=== PATIENT | male | born 2000 | race Caucasian/White ===

== ENCOUNTER 2021-08-25 19:43 | Emergency (ER) | payer SELFPAY ==
[~2021-08-25] VITALS: Ht 165.1 cm; Wt 93.1 kg
[2021-08-25] MEDS ORDERED: ANASPAZ0.125 MG PO (21:57)
--- OUTSIDE RECORDS SUMMARY | 2021-08-25 22:34 | XMS ---
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 Robbi has no Care Guidelines for this patient. Jenny VISIT COUNT (12 MO.) 5 [facility] 1 [facility] TOTAL 6 NOTE: Visits indicate total known visits. ED/UCC VISIT TRACKING (12 MO.) 08/25/2021 19:44 [facility] [place] TYPE: Emergency COMPLAINT: - BLLOD IN STOOL 08/12/2021 11:34 [facility]DJ[facility] [place] TYPE: Emergency DIAGNOSES: 0. Unspecified visual loss 0. Headache, unspecified 0. LOSS OF VISION 1. Migraine, unspecified, not intractable, without status migrainosus 2. Nicotine dependence, cigarettes, uncomplicated 05/20/2021 10:42 [facility] [place] TYPE: Emergency DIAGNOSES: 0. FACIAL WEAKNESS 0. Paresthesia of skin 0. Other visual disturbances 0. Headache, unspecified 1. Headache, unspecified 2. Nicotine dependence, cigarettes, uncomplicated 2. Paresthesia of skin 2. Tachycardia, unspecified 2. Allergy status to other drugs, medicaments and biological substances 2. Other visual disturbances 05/14/2021 18:29 [employer] [facility] [place] TYPE: Emergency DIAGNOSES: 0. NECK LUMP 0. Localized swelling, mass and lump, neck 1. Other muscle spasm 2. Other tic disorders 2. Nicotine dependence, cigarettes, uncomplicated 03/05/2021 19[facility] DIAGNOSES: 0. BACK PAIN 0. Pain in thoracic spine 1. Strain of muscle and tendon of back wall of thorax, initial encounter 2. Nicotine dependence, cigarettes, uncomplicated 2. Allergy status to other drugs, medicaments and biological substances 2. Exposure to other specified factors, initial encounter 09/09/2020 18:25 [facility] DIAGNOSES: 0. Jaw pain 0. LUMP ON THROAT 0. Cervicalgia 1. Jaw pain 2. Allergy status to other drugs, medicaments and biological substances 2. Dental caries, unspecified 2. Nicotine dependence, cigarettes, uncomplicated INPATIENT VISIT TRACKING (12 MO.) No inpatient visits to display in this time frame [email or web address]
== END 2021-08-25 22:20 | disposition home or self-care (01) ==
LOC: ED 19:43
DX: A09 Infectious gastroenteritis and colitis, unspecified (principal); Z88.8 Allergy status to other drugs, medicaments and biological substances
CPT/HCPCS: 36415; 74177; 80053; 81001; 83690; 85025; 99284-25

== ENCOUNTER 2024-12-23 21:08 | Emergency (ER) | payer MEDICAID ==
[~2024-12-23] VITALS: Ht 167.6 cm; Wt 92.8 kg
[~2024-12-23 21:08] MED LIST: ANASPAZ0.125 MG PO
[2024-12-23 22:25] LABS: BASOPHILS 0.7 % (0.2-1.2); HEMATOCRIT 46.6 % (40.1-51.0); HEMOGLOBIN 16.3 g/dL (13.7-17.5); LYMPHOCYTES 33.1 % (21.8-53.1); MCH 29.7 PG (25.7-32.2); MCV 84.9 fL (79.0-92.2); MONOCYTES 8.3 % (5.3-12.2); NEUTROPHILS 55.5 % (34.0-67.9); PLATELET COUNT 260 K/uL (163-337); RBC 5.49 M/uL (4.63-6.08)
[2024-12-23 22:40] LABS: ALBUMIN 4.3 g/dL (3.4-5.0); ALBUMIN/GLOBULIN RATIO 1.19 (1.1-2.4); ANION GAP 11.8 (7-21); BILIRUBIN, TOTAL 0.5 mg/dL (0.2-1.0); BUN/CREATININE RATIO 12.94 (6.0-28.6); CALCIUM 9.1 mg/dL (8.5-10.1); CREATININE, SERUM 0.85 mg/dL (0.70-1.30); MAGNESIUM 2.1 mg/dL (1.8-2.4); POTASSIUM 3.8 mmol/L (3.5-5.1); PROTEIN, TOTAL 7.9 g/dL (6.4-8.2)
[2024-12-23 23:13] VITALS: BP 116/66
== END 2024-12-23 23:13 | disposition home or self-care (01) ==
LOC: ED 21:08
PROVIDERS: Internal Medicine
DX: R25.2 Cramp and spasm (principal); Z88.8 Allergy status to other drugs, medicaments and biological substances
CPT/HCPCS: 36415; 80053; 80307; 83735; 85025; 99283

== ENCOUNTER 2025-02-01 14:25 | Emergency (ER) | payer MEDICAID ==
[~2025-02-01] VITALS: Ht 167.6 cm; Wt 93.8 kg
--- OUTSIDE RECORDS SUMMARY | 2025-02-01 14:32 | XMS ---
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 Jenny VISIT COUNT (12 MO.) [address] [place] [address] TOTAL 5 NOTE: Visits indicate total known visits. ED/UCC VISIT TRACKING (12 MO.) 02/01/2025 14:26 [facility] [place] TYPE: Emergency COMPLAINT: - BLURRED VISION 01/18/2025 10:58 [facility] [place] TYPE: Emergency COMPLAINT: - FACE PAIN 12/23/2024 21:09 [facility] [place] TYPE: Emergency COMPLAINT: - BLOOD PRESSURE ISSUES DIAGNOSES: - Allergy status to other drugs, medicaments and biological substances - Cramp and spasm 06/10/2024 21:25 [facility] TYPE: Emergency DIAGNOSES: 0. Otalgia, left ear 0. Other specified symptoms and signs involving the circulatory and respiratory systems 0. EARACHE 1. Otitis media, unspecified, left ear 2. Allergy status to other drugs, medicaments and biological substances 2. Nicotine dependence, cigarettes, uncomplicated 05/07/2024 14:04 [facility] [place] [employer] [place] TYPE: Emergency DIAGNOSES: 0. Epigastric pain 0. Periumbilical pain 0. Vomiting, unspecified 0. ABD PAIN 1. Epigastric pain 2. Diarrhea, unspecified 2. Nicotine dependence, cigarettes, uncomplicated 2. Periumbilical pain 2. Vomiting, unspecified INPATIENT VISIT TRACKING (12 MO.) No inpatient visits to display in this time frame [email or web address]
[2025-02-01 16:36] VITALS: BP 129/68
== END 2025-02-01 16:36 | disposition home or self-care (01) ==
LOC: ED 14:25
DX: R51.9 Headache, unspecified (principal); Z88.8 Allergy status to other drugs, medicaments and biological substances
CPT/HCPCS: 99283

== ENCOUNTER 2025-03-30 02:18 | Emergency (ER) | payer SELFPAY ==
[~2025-03-30] VITALS: Ht 165.1 cm; Wt 93.0 kg
[2025-03-30] MEDS ORDERED: FLONASE ALLERG9.9 ML NAS (03:23)
[2025-03-30] MEDS ORDERED: DEXAMETHASONE SOD PHOS 10 MG/ML VIAL PO ONE (03:30)
[2025-03-30 03:35] VITALS: BP 132/78
== END 2025-03-30 03:38 | disposition home or self-care (01) ==
LOC: ED 02:18
DX: J06.9 Acute upper respiratory infection, unspecified (principal); R09.1 Pleurisy; Z88.8 Allergy status to other drugs, medicaments and biological substances; G43.909 Migraine, unspecified, not intractable, without status migrainosus
CPT/HCPCS: 71045; 99284-25; J1100

== ENCOUNTER 2025-04-11 20:44 | Emergency (ER) | payer SELFPAY ==
[~2025-04-11] VITALS: Ht 165.1 cm; Wt 93.0 kg
--- OUTSIDE RECORDS SUMMARY | ~2025-04-11 | XMS | Continuity of Care Document ---
Demographics + + + | Address | [phone] | | | [place] [address] | + + + | Preferred Language | Unknown | + + + | Marital Status | | + + + | Roman Catholic Affiliation | Unknown | + + + | Race | White | + + + | Ethnic Group | Unknown | + + + Author + + + | Author | [facility] | + + + | Organization | [facility] | + + + | Address | [address] | | | [place] [address] | + + + | Phone | | + + + Care Team Providers + + + + | Care Wire Drawing Machine Tender Name | Role | Phone | + [...] date) | prednisone 20 mg oral | [facility] | | | tablet | | + + + + | 2025-02-14 00:00 | prednisone 20 mg oral | [facility] | | | tablet | | + + + + Problems + + + + | date | description | facility | + + + + | 2025-01-18 00:00 | Encounter for medical | [facility] | | | screening examination | [facility] | + + + + | 2025-02-01 00:00 | Headache | [facility] | | | | [facility] | + + + + | 2025-02-13 21:37 | Jovanni Urena Numbness | [facility] | + + + + | 2025-02-14 01:16 | Numbness | [facility] | + + + + | 2025-02-14 01:16 | Numbness | [facility] | + + + + | 2025-02-14 01:16 | Lesion of ulnar nerve, | [facility] | | | left upper limb | | + + + + Procedures + + + + | date | description | facility | + + + + | 2025-02-14 00:00 | ED INFORMATION EXCHANGE | [facility] | + + + + Results/Labs No information. Social History + + + + | date | description | facility | + + + + | (no date) | Unknown if ever smoked | [facility] | | | | [facility] | + + + + | 2025-02-14 00:00 | Never smoked tobacco | [facility] | + + + + Vital Signs + + + +---------+ | date | measurement | value | units | + + + +---------+ | 2025-01-18 00:00 | BMI | 32.9 | kg/m2 | + + + +---------+ | 2025-01-18 00:00 | BP_diastolic | 67 | mmHg | + + + +---------+ | 2025-01-18 00:00 | BP_systolic | 134 | mmHg | + + + +---------+ | 2025-01-18 00:00 | heart_rate | 93 | /min | + + + +---------+ | 2025-01-18 00:00 | height_metric | 167.64 | cm | + + + +---------+ | 2025-01-18 00:00 | height_standard | 66 | in | + + + +---------+ | 2025-01-18 00:00 | o2_saturation | 99 | % | + + + +---------+ | 2025-01-18 00:00 | respiration_rate | 14 | /min | + + + +---------+ | 2025-01-18 00:00 | temperature_metric | 36.67 | C | | | | | | + + + +---------+ | 2025-01-18 00:00 | | 98 | F | | | temperature_standar | | | | | d | | | + + + +---------+ | 2025-01-18 00:00 | weight_metric | 92.5 | kg | + + + +---------+ | 2025-01-18 00:00 | weight_standard | 203.93 | lb | + + + +---------+ | 2025-02-01 [...]
[~2025-04-11 20:44] MED LIST changes: +FLONASE ALLERG9.9 ML NAS
--- OUTSIDE RECORDS SUMMARY | 2025-04-11 20:51 | XMS ---
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 Jenny VISIT COUNT (12 MO.) [address] [place] [address] Joaquín TOTAL 8 NOTE: Visits indicate total known visits. ED/UCC VISIT TRACKING (12 MO.) 04/11/2025 20:45 [facility] [place] TYPE: Emergency COMPLAINT: - DIZZINESS 03/30/2025 02:18 [facility] [place] TYPE: Emergency COMPLAINT: - CONGESTION DIAGNOSES: - Acute upper respiratory infection, unspecified - Allergy status to other drugs, medicaments and biological substances - Chest pain on breathing - Migraine, unspecified, not intractable, without status migrainosus - Pleurisy 02/14/2025 01:16 [facility] [place] TYPE: Emergency DIAGNOSES: - Lesion of ulnar nerve, left upper limb - L. Arm Numbness - Numbness 02/01/2025 14:26 [facility] [place] TYPE: Emergency COMPLAINT: - HEADACHE DIAGNOSES: - Allergy status to other drugs, medicaments and biological substances - Headache, unspecified 01/18/2025 10:58 [facility] [place] TYPE: Emergency COMPLAINT: - FACE PAIN 12/23/2024 21:09 [facility] [place] TYPE: Emergency COMPLAINT: - BLOOD PRESSURE ISSUES DIAGNOSES: - Allergy status to other drugs, medicaments and biological substances - Cramp and spasm 06/10/2024 21[facility]: Emergency DIAGNOSES: 0. Otalgia, left ear 0. Other specified symptoms and signs involving the circulatory and respiratory systems 0. EARACHE 1. Otitis media, unspecified, left ear 2. Allergy status to other drugs, medicaments and biological substances 2. Nicotine dependence, cigarettes, uncomplicated 05/07/2024 14:04 [facility] TYPE: Emergency DIAGNOSES: 0. Epigastric pain 0. Periumbilical pain 0. Vomiting, unspecified 0. ABD PAIN 1. Epigastric pain 2. Diarrhea, unspecified 2. Nicotine dependence, cigarettes, uncomplicated 2. Periumbilical pain 2. Vomiting, unspecified INPATIENT VISIT TRACKING (12 MO.) No inpatient visits to display in this time frame [id number]
[2025-04-11 21:14] LABS: BASOPHILS 0.6 % (0.2-1.2); EOSINOPHILS 1.2 % (0.8-7.0); LYMPHOCYTES 29.2 % (21.8-53.1); MCH 29.8 PG (25.7-32.2); MCHC 35.6 g/dL (32.3-36.5); MCV 83.8 fL (79.0-92.2); MONOCYTES 7.9 % (5.3-12.2); NEUTROPHILS 60.6 % (34.0-67.9); RBC 5.50 M/uL (4.63-6.08)
[2025-04-11 21:33] LABS: ALT (SGPT) 54.0 U/L (14-59); AST (SGOT) 23.0 U/L (15-37); GLOMERULAR FILTRATION RATE,EST 112.0 mL/min (>60); PROTEIN, TOTAL 8.0 g/dL (6.4-8.2); UREA NITROGEN 7.0 mg/dL (7-18)
[2025-04-11] MEDS ORDERED: MECLIZINE HCL25 MG PO (21:48)
[2025-04-11 21:59] VITALS: BP 109/46
--- NOTE | 2025-04-12 12:35 | EKG ---
[facility] [address] [place], [place] [address] Signed Sinus rhythm with marked sinus arrhythmia Otherwise normal ECG No previous ECGs available Confirmed by KYRIE HUYNH MD ([id number]) on 04/12/2025 12:34:42 PM Electronically Signed By: KYRIE HUYNH 04/12/25 1235 PATIENT NAME: FARTUN NEAL WINNIE Electrocardiogram DATE OF : 89 PHYSICIAN: KYRIE HUYNH REPORT #: [id number] REPORT IS CONFIDENTIAL AND NOT TO BE RELEASED WITHOUT AUTHORIZATION
== END 2025-04-11 22:00 | disposition home or self-care (01) ==
LOC: ED 20:44
PROVIDERS: Family Medicine
DX: H81.10 Benign paroxysmal vertigo, unspecified ear (principal); Z88.8 Allergy status to other drugs, medicaments and biological substances; Z79.899 Other long term (current) drug therapy
CPT/HCPCS: 36415; 70450; 80053; 84484; 85025; 93005; 93010; 99284-25

== ENCOUNTER 2025-04-28 11:40 | Emergency (ER) | payer OTHER ==
[~2025-04-28] VITALS: Ht 167.6 cm; Wt 95.0 kg
--- OUTSIDE RECORDS SUMMARY | ~2025-04-28 | XMS | Continuity of Care Document ---
Demographics + + + | Address | [phone] | | | [place] [address] | + + + | Preferred Language | Unknown | + + + | Marital Status | | + + + | Methodist Affiliation | Unknown | + + + | Race | White | + + + | Ethnic Group | Unknown | + + + Author + + + | Author | [facility] | + + + | Organization | [facility] | + + + | Address | [address] | | | [place] [address] | + + + | Phone | | + + + Care Team Providers + + + + | Care Foundation Maker Name | Role | Phone | + + + + Unavailable | Unavailable | + + + + Unavailable | Unavailable | + + + + Unavailable | Unavailable | + + + + Unavailable | Unavailable | + + + + Allergies and Intolerances + + + + + + | date | description | facility | reaction | severity | + + + + + + | 2025-02-01 | Promethazine | [facility]om[facility] | (no severity) | | 00:00 | | [facility] | | | + + + + + + | 2025-02-01 | Promethazine | [facility] | Vomiting | (no severity) | | 00:00 | | [facility] | | | + + + + + + | 2025-02-01 | Promethazine | [facility] | Vomiting | (no severity) | | 00:00 | | [facility] | | | | [facility] | | | + + + + + + Encounters No information. Functional Status No information. Immunizations No information. Medications + + + + | date | description | facility | + + + + | (no date) | prednisone 20 mg oral | [facility] | | | tablet | | + + + + | 2025-02-14 00:00 | prednisone 20 mg oral | [facility] | | | tablet | | + + + + Problems + + + + | date | description | facility | + + + + | 2025-02-01 00:00 | Headache | [facility] | | | | [facility] | + + + + | 2025-02-13 21:37 | Jovanni Urena Numbness | [facility] | + + + + | 2025-02-14 01:16 | Numbness | [facility] | + + + + | 2025-02-14 01:16 | Numbness | [facility] | + + + + | 2025-02-14 01:16 | Lesion of ulnar nerve, | [facility] | | | left upper limb | | + + + + Procedures + + + + | date | description | facility | + + + + | 2025-02-14 00:00 | ED INFORMATION EXCHANGE | [facility] | + + + + Results/Labs No information. Social History + + + + | date | description | facility | + + + + | (no date) | Unknown if ever smoked | [facility] | | | | [facility] | + + + + | 2025-02-14 00:00 | Never smoked tobacco | [facility] | + + + + Vital Signs + + + +---------+ | date | measurement | value | units | + + + +---------+ | 2025-02-01 00:00 | BMI | 33.4 | kg/m2 | + + + +---------+ | 2025-02-01 00:00 | BP_diastolic | 68 | mmHg | + + + +---------+ | 2025-02-01 00:00 | BP_systolic | 129 | mmHg | + + + +---------+ | 2025-02-01 00:00 | heart_rate | 72 | /min | + + + +---------+ | 2025-02-01 00:00 | height_metric | 167.64 | cm | + + + +---------+ | 2025-02-01 00:00 | height_standard | 66 | in | + + + +---------+ | 2025-02-01 00:00 | o2_saturation | 98 | % | + + + +---------+ | 2025-02-01 00:00 | respiration_rate | 16 | /min | + + + +---------+ | 2025-02-01 00:00 | temperature_metric | 36.78 | C | | | | | | + + + +---------+ | 2025-02-01 00:00 | | 98.2 | F | | | temperature_standar | | | | | d | | | + + + +---------+ | 2025-02-01 00:00 | weight_metric | 93.8 | kg | + + + +---------+ | 2025-02-01 00:00 | weight_standard | 206.79 | lb | + + + +---------+ | 2025-02-14 00:00 | BMI | 32.28 | kg/m2 | + + + +---------+ | 2025-02-14 00:00 | BP_diastolic | 66 | mmHg | + + + +---------+ | 2025-02-14 00:00 | BP_systolic | 131 | mmHg | + + + +---------+ | 2025-02-14 00:00 | heart_rate | 74 | /min | + + + +---------+ | 2025-02-14 00:00 | height_metric | 167.6 | cm | + + + +---------+ | 2025-02-14 00:00 | height_standard | 65.98 | in | + + + +---------+ | 2025-02-14 00:00 | o2_saturation | 98 | % | + + + +---------+ | 2025-02-14 00:00 | respiration_rate | 18 | /min | + + + +---------+ | 2025-02-14 00:00 | temperature_metric | 36.67 | C | | | | | | + + + +---------+ | 2025-02-14 00:00 | | 98.01 | F | | | temperature_standar | | | | | d | | | + + + +---------+ | 2025-02-14 00:00 | weight_metric | 90.72 | kg | + + + +---------+ | 2025-02-14 00:00 | weight_standard | 200 | lb | + + + +---------+"
[~2025-04-28 11:40] MED LIST changes: +MECLIZINE HCL25 MG PO
--- OUTSIDE RECORDS SUMMARY | 2025-04-28 11:47 | XMS ---
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 Jenny VISIT COUNT (12 MO.) [address] [place] TOTAL 9 NOTE: Visits indicate total known visits. 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 Arm Numbness - Numbness 02/01/2025 14:26 [facility] [place] TYPE: Emergency COMPLAINT: - HEADACHE DIAGNOSES: - Allergy status to other drugs, medicaments and biological substances - Headache, unspecified 01/18/2025 10:58 [facility] [place] TYPE: Emergency COMPLAINT: - FACE PAIN 12/23/2024 21:09 [facility] [place] TYPE: Emergency COMPLAINT: - BLOOD PRESSURE ISSUES DIAGNOSES: - Allergy status to other drugs, medicaments and biological substances - Cramp and spasm 06/10/2024 21:[facility] TYPE: Emergency DIAGNOSES: 0. Otalgia, left ear 0. Other specified symptoms and signs involving the circulatory and respiratory systems 0. EARACHE 1. Otitis media, unspecified, left ear 2. Allergy status to other drugs, medicaments and biological substances 2. Nicotine dependence, cigarettes, uncomplicated 05/07/2024 14:[facility] DIAGNOSES: 0. Epigastric pain 0. Periumbilical pain 0. Vomiting, unspecified 0. ABD PAIN 1. Epigastric pain 2. Diarrhea, unspecified 2. Nicotine dependence, cigarettes, uncomplicated 2. Periumbilical pain 2. Vomiting, unspecified INPATIENT VISIT TRACKING (12 MO.) No inpatient visits to display in this time frame [email or web address]
[2025-04-28 13:18] VITALS: BP 118/59
== END 2025-04-28 13:24 | disposition home or self-care (01) ==
LOC: ED 11:40
DX: S67.197A Crushing injury of left little finger, initial encounter (principal); G43.909 Migraine, unspecified, not intractable, without status migrainosus; W23.0XXA Caught, crushed, jammed, or pinched between moving objects, initial encounter; Z88.8 Allergy status to other drugs, medicaments and biological substances
CPT/HCPCS: 73140; 99283